=== PATIENT | female | born 1945 | race Caucasian/White ===

== ENCOUNTER 2017-11-20 12:09 | Day surgery (SDC) | payer MEDICARE, BC ==
[~2017-11-20] VITALS: Ht 160 cm; Wt 70.9 kg
[2017-11-20 12:17] VITALS: BP 154/73
[2017-11-20] MEDS ORDERED: ATOR40TA PO (12:23)
[2017-11-20] MEDS ORDERED: LEVO100T PO (12:23)
[2017-11-20] MEDS ORDERED: METO25TA6 PO (12:24)
[2017-11-20] MEDS ORDERED: OMEP20CA10 PO (12:24)
[2017-11-20] MEDS ORDERED: TRIA1CAP2 PO (12:26)
[2017-11-20] MEDS ORDERED: FENO54TA PO (12:27)
[2017-11-20] MEDS ORDERED: CHOL200013 PO (12:28)
[2017-11-20] MEDS ORDERED: CALC600T12 PO (12:29)
[2017-11-20] MEDS ORDERED: OMEG-182 PO (12:29)
[2017-11-20] MEDS ORDERED: IBUP-24 PO (12:30)
[2017-11-20] MEDS ORDERED: BACL10TA PO (12:30)
[2017-11-20] MEDS ORDERED: PHOS118S25 PO (12:31)
[2017-11-20] MEDS ORDERED: fentaNYL/PF 50MCG/1 ML 2ML syringe ONE ×2 (13:01→13:15)
[2017-11-20] MEDS ORDERED: MIDAZolam 5mg/5ml vial ONE (13:02)
[2017-11-20] MEDS ORDERED: LIDOcaine Viscous 15ml cup ONE (13:02)
[2017-11-20] MEDS ORDERED: diphenhydrAMINE 50 mg/ml inj ONE (13:14)
[2017-11-20 13:36] VITALS: BP 105/60
[2017-11-20 13:46] VITALS: BP 102/62
[2017-11-20 13:56] VITALS: BP 100/57
[2017-11-20 14:06] VITALS: BP 101/61
== END 2017-11-20 14:25 | disposition home or self-care (01) ==
LOC: GI LAB 12:09
PROVIDERS: ATTEND Internal Medicine Gastroenterology
DX: K52.89 Other specified noninfective gastroenteritis and colitis (principal); Z79.1 Long term (current) use of non-steroidal anti-inflammatories (NSAID); Z88.7 Allergy status to serum and vaccine; Z91.048 Other nonmedicinal substance allergy status; Z88.6 Allergy status to analgesic agent; Z90.710 Acquired absence of both cervix and uterus; Z79.899 Other long term (current) drug therapy
CPT/HCPCS: 45380; G0500; J1200; J2250; J3010; J7030; 88305; A4620

== ENCOUNTER 2019-08-14 10:15 | Emergency (ER) | payer MEDICARE, BC ==
[~2019-08-14] VITALS: Ht 162.6 cm; Wt 74.5 kg
[~2019-08-14 10:15] MED LIST: ATOR40TA PO; BACL10TA PO; CALC600T12 PO; CHOL200013 PO; FENO54TA PO; IBUP-24 PO; LEVO100T PO; METO25TA6 PO; OMEG-182 PO; OMEP-297 PO; PHOS118S25 PO; TRIA1CAP2 PO
[2019-08-14 10:27] VITALS: BP 174/83
[2019-08-14 11:10] LABS: BASOPHILS # (AUTO) 0.1 X10'3 (0-0.2); BASOPHILS % (AUTO) 0.7 % (0-1); EOSINOPHILS # (AUTO) 0.1 X10'3 (0-0.9); EOSINOPHILS % (AUTO) 1.1 % (0-6); HEMATOCRIT 40.7 % (35.0-45.0); HEMOGLOBIN 13.7 g/dl (12.0-16.0); LYMPHOCYTES # (AUTO) 1.8 X10'3 (1.1-4.8); LYMPHOCYTES % (AUTO) 22.3 % (21-51); MEAN CORPUSCULAR HEMOGLOBIN 28.9 PG (27.0-31.0); MEAN CORPUSCULAR HGB CONC 33.8 g/dL (33.0-36.5); MEAN CORPUSCULAR VOLUME 85.5 FL (78-98); MEAN PLATELET VOLUME 8.2 FL (7.4-10.4); MONOCYTES # (AUTO) 0.6 X10'3 (0-0.9); MONOCYTES % (AUTO) 7.1 % (2-12); NEUTROPHILS # (AUTO) 5.5 X10'3 (1.8-7.7); NEUTROPHILS % (AUTO) 68.8 % (42-75); PLATELET COUNT 244 X10'3 (140-440); RED BLOOD COUNT 4.76 X10'6 (4.20-5.60); RED CELL DISTRIBUTION WIDTH 13.8 % (11.5-14.5)
[2019-08-14 11:36] LABS: ALANINE AMINOTRANSFERASE 24 U/L (12-78); ALBUMIN 3.9 G/DL (3.4-5.0); ALBUMIN/GLOBULIN RATIO 1.3 (1.1-1.5); ALKALINE PHOSPHATASE 47 IU/L (46-116); ANION GAP 8 (8-16); ASPARTATE AMINO TRANSFERASE 19 U/L (10-37); BILIRUBIN,TOTAL 0.4 MG/DL (0.1-1.0); BLOOD UREA NITROGEN 34 MG/DL (7-18); BUN/CREATININE RATIO 27.4 (6.6-38.0); CALCIUM 8.5 MG/DL (8.5-10.1); CHLORIDE 106 MMOL/L (99-107); CREATININE 1.24 MG/DL (0.40-0.90); GLUCOSE 111 MG/DL (70-104); LIPASE 302 U/L (73-393); POTASSIUM 3.5 MMOL/L (3.5-5.1); SODIUM 144 MMOL/L (135-145); eGFR 43 ML/MIN
[2019-08-14 11:51] LABS: WHITE BLOOD COUNT 7.9 X10'3 (4.5-11.0)
[2019-08-14 12:01] LABS: CLARITY,URINE CLEAR (Clear); COLOR,URINE YELLOW (Yellow); GLUCOSE, URINE NEGATIVE (Neg); KETONES,URINE NEGATIVE (Neg); LEUKOCYTE ESTERASE ,URINE TRACE (Neg); NITRITES, URINE NEGATIVE (Neg); OCCULT BLOOD,URINE NEGATIVE (Neg); PH,URINE 6.5 (4.8-8.0); PROTEIN,URINE NEGATIVE (Neg); UROBILINOGEN,URINE 0.2 E.U/dL (0.2-1.0)
[2019-08-14 12:05] LABS: UA COLLECTION TYPE NON-SPECIFIED
[2019-08-14 12:06] LABS: MUCUS STRANDS NONE SEEN /LPF (Neg); RBC,URINE NONE SEEN /HPF (0-2); SQUAMOUS EPITHELIAL CELL,UR FEW /LPF (FEW); WBC,URINE 0-4 /HPF (0-4)
[2019-08-14 12:07] LABS: BACTERIA,URINE FEW /HPF (Neg)
[2019-08-14] MEDS ORDERED: AMOX-580 PO (12:16)
== END 2019-08-14 12:43 | disposition home or self-care (01) ==
LOC: ER 10:16
DX: R10.32 Left lower quadrant pain (principal); Z79.899 Other long term (current) drug therapy; Z88.8 Allergy status to other drugs, medicaments and biological substances
CPT/HCPCS: 36415; 74176; 80053; 81001; 83690; 85025; 87088; 99284

== ENCOUNTER 2025-04-07 09:01 | Day surgery (SDC) | payer MEDICARE, BC ==
[2025-04-01 10:03] LABS: MEAN PLATELET VOLUME 8.1 FL (7.4-10.4); PRE OP HEMATOCRIT 39.0 % (35.0-45.0); PRE OP HEMOGLOBIN 13.3 g/dL (12.0-16.0); PRE OP PLATELET COUNT 212 X10'3 (140-440); PRE OP WHITE BLOOD COUNT 6.3 10'3 (4.8-10.8); RED CELL DISTRIBUTION WIDTH 13.6 % (11.5-14.5)
[2025-04-01 10:42] LABS: CREATININE 1.01 MG/DL (0.40-0.90); PRE OP ALT 19 U/L (30-65); PRE OP ANION GAP 10 (8-16); PRE OP AST 20 U/L (10-37); PRE OP BILIRUB, TOTAL 0.6 MG/DL (0.0-1.0); PRE OP GLUCOSE 107 MG/DL (70-104); PRE OP POTASSIUM 3.8 MMOL/L (3.4-5.1); PRE OP SODIUM 140 MMOL/L (135-145); TOTAL CARBON DIOXIDE 29.3 MMOL/L (24-32); eGFR 53 ML/MIN
[~2025-04-07] VITALS: Ht 162.6 cm; Wt 76.2 kg
[2025-04-07] VITALS (26 sets, daily range): BP systolic 106–170; BP diastolic 67–84; PULSE 61–85; RESP 10–24; TEMP 97.1–98.3; O2SAT 93–99
[2025-04-07] MEDS: ringers solution, lacted 1,000 ML IV SCH ×3 (05:30→13:10)
[2025-04-07] MEDS: ceFAZolin 2gm/dext,iso 50mL 50 ML IV ONE (05:30)
[2025-04-07] MEDS: DOCUMENT DATE & TIME OF BETA-BLOCKER PO ONE (06:00)
[~2025-04-07 09:01] MED LIST changes: +ACET-1084 PO; +ATOR-2 PO; -ATOR40TA PO; -BACL10TA PO; -CALC600T12 PO; +CALC600T35 PO; +EZET10TA48 PO; -IBUP-24 PO; +MAGN200T PO; -METO25TA6 PO; +METO50TA16 PO; -OMEP-297 PO; +OMEP20CA15 PO
[2025-04-07] MEDS ORDERED: BUPIVACAINE/MELOXICAM 14 ML VIAL IL ONE (09:53)
[2025-04-07] MEDS: VANCOMYCIN/H2O 1.5g/300mL PB 300 ML IV ONE (10:24)
[2025-04-07] MEDS ORDERED: fentaNYL /PF 50mcg/ml 5ml ampule ONE (11:21)
[2025-04-07] MEDS ORDERED: midazolam 1 mg/ML 2ml injection ONE (11:21)
--- NOTE | 2025-04-07 11:34 | DISCHARGE SUMMARY ---
Discharge Summary Ortho CC ~ Discharge Summary *Problems/Diagnosis: (1) S/P total knee arthroplasty Admission Diagnosis: osteoarthritis Discharge Diagnosis\Comment: s/p Right TKA Operations\Procedures Right TKA Consultants: None Complications: None Condition on DC: Stable Discharge Summary: On today's date patient underwent a right total knee arthroplasty. Surgery went well and without complication. Patient is doing well in recovery. Permitted she meets discharge criteria she will be discharged home today. Total Time Spent on D/C: Up to 30 Minutes Medications Home Meds: Home Medications Active Reported Acetaminophen 500 Mg Tablet 1 Tab PO Q4H PRN Magnesium 200 Mg Tablet 200 Mg PO DAILY Ezetimibe 10 Mg Tablet 1 Tab PO DAILY Atorvastatin Calcium 80 Mg Tablet 1 Tab PO DAILY Metoprolol Tartrate 50 Mg Tablet 1 Tab PO BID Emetrol Oral Solution (Phosp Acid/Dextrose/Fructose) 118 Ml Solution PO PRN PRN Fish Oil 1,200 mg Softgel ([place]-3S/Dha/Epa/Fish Oil) 1 Each Capsule 1 PO DAILY Calcium (Calcium Carbonate) 600 Mg Tablet 2 PO DAILY D3-2000 (Cholecalciferol (Vitamin D3)) 2,000 Unit Capsule 1,000 Mg PO DAILY Fenofibrate 54 Mg Tablet 1 Tab PO BID 30 Days Dyazide 37.5-25 Capsule (Triamterene/Hydrochlorothiazid) 1 Each Capsule 1 Cap PO DAILY 30 Days Omeprazole 20 Mg Capsule. 1 Cap PO BID 30 Days Synthroid (Levothyroxine Sodium) 100 Mcg Tablet 1 Tab PO DAILY 30 Days Supervising Physician Supervising Physician: Dr. Chandler Elizabeth Problem Qualifiers (1) S/P total knee arthroplasty: Qualified Codes: Z96.651 - Presence of right artificial knee joint [place] JASON PAC Apr 07, 2025 11:34
[2025-04-07] MEDS ORDERED: 0.9 % SODIUM CHLORIDE 10 ML VIAL ONE ×2 (11:41→12:19)
[2025-04-07] MEDS ORDERED: ROPIVAcaine 0.5% (5mg/ml) 30ml vial ONE (11:41)
[2025-04-07] MEDS ORDERED: LIDOcaine 2% (20mg/ml) 5ml vial ONE (11:42)
[2025-04-07] MEDS ORDERED: dexamethasone sod phosphate 4mg/ml inj. ONE (11:42)
[2025-04-07] MEDS ORDERED: propofol inj 20 ML IV ONE (11:42)
[2025-04-07] MEDS ORDERED: ondansetron/PF 4mg/2ml inj ONE (11:47)
[2025-04-07] MEDS: BUPIVACAINE/MELOXICAM 14 ML VIAL IL ONE (12:15)
[2025-04-07] MEDS ORDERED: ePHEDrine 50MG/ML INJ. ONE (12:19)
[2025-04-07] MEDS ORDERED: labetalol 20mg/4ml (5mg/ml) syringe IV PRN (13:10)
[2025-04-07] MEDS ORDERED: ondansetron/PF 4mg/2ml inj IV PRN ×2 (13:10→16:10)
[2025-04-07] MEDS ORDERED: morphine 4 MG/ML inj SYRINge IV PRN (13:10)
[2025-04-07] MEDS ORDERED: HYDROmorphone/PF 0.2 MG/ML SYRINGE IV PRN ×2 (13:10)
[2025-04-07] MEDS ORDERED: hydrALAZINE 20mg/ml inj. IV PRN (13:10)
--- NOTE | 2025-04-07 13:28 | OPERATIVE REPORT ---
Operative Report Operative Report OPERATIVE REPORT [facility] [address] [place] [address] Date of service: April 07, 2025 PREOPERATIVE DIAGNOSIS M17..16 Unilateral primary osteoarthritis, right knee POSTOPERATIVE DIAGNOSIS M17..16 Unilateral primary osteoarthritis, right knee Operation Performed 35520 Total Knee Arthroplasty with this [place]: [place] 27719 Computer Assisted Navigation Musculoskeletal - Imageless Procedure: Computer-assisted, robotically-assisted, right total knee arthroplasty. Surgeon: Dr. Chandler Elizabeth Political Geographer: Blanca Durand PA-C Anesthesiologist: Dr. Gomez Anesthesia: General Anesthetic Indications: 79-year-old female who has chronic osteoarthritis of the right knee with severe pain and limitation of activities despite extensive non- operative management. This patient has had extensive conservative treatment of knee joint arthritis, including rest, external joint support, anti-inflammatory medications, physical therapy, and corticosteroid injection. Physical therapy has been provided, along with a home exercise program prior to making the decision to proceed with surgical treatment. This therapeutic intervention did not provide any substantial relief of symptoms or improvement in function. The patient has been utilizing a cane, set of crutches, or walker, for more than 3 months prior to deciding to proceed with surgery. These interventions have not provided sufficient relief of pain to allow improvement in function. The patient has utilized non-steroidal anti-inflammatory medications for relief of pain over an extended period of time (more than 2 months), and has not experienced sufficient improvement in symptoms. Despite these treatments, this patient has c ontinued difficulties with pain and limited function. They are unable to walk long distances, do vigorous activities, sit or sleep comfortably. Total knee replacement is the next reasonable step in terms of treatment. 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 This facilitated operative exposure, manipulation and handling of tissues, placement of any implants, and accomplishment of wound closure. Findings: There was indeed a very severely arthritic knee, with loss of cartilage, exposed bone, and marginal osteophytes. The medial compartment was particularly bad. A 4 degree varus deformity and 2 degree flexion contracture were measured preoperatively. Post operative alignment was 0 varus, and full extension. Complications: None Estimated Blood Loss: 150 mL Implants: A Mercedes Persona CR total knee system was utilized with a size eight right cemented femoral component, and a size D right cemented tibial smart stem. A 10 mm medial congruent right tibial insert was utilized. The Open[employer]atch robotically assisted total knee arthroplasty system and computer was utilized. Procedure: The risks, benefits, expected results, and possible complications of the planned procedure had been explained to the patient and informed consent obtained. The patient was taken to the operating room and underwent a general anesthetic and regional blocks. The patient was placed in the supine position on the operating table, and the right leg was prepped and draped in the usual fashion. A timeout was taken prior to surgery, confirming patient identification, operative side operative site, planned procedure, administration of pre-operative antibiotics, site marking, and presence of all necessary implants and instruments, x-rays and equipment. A standard anterior, slightly medial approach was performed with a medial parapatellar arthrotomy, and a VMO split. Time was then spent removing excessive synovial tissue and exposing the medial and lateral gutters, as well as moving the anterior sections of the residual menisci. The patella was mobilized to be able to be retracted laterally. This gave exposure of the anterior aspect of the knee. Attention was then directed to the patella. The patella was in excellent condition so we decided not to resurface the patella. Infrared arrays were then placed on the femur and the tibia. Utilizing the OpenHatch computer system, the hip, knee, and ankle were landmarked in usual fashion. The initial alignment measurements were then taken confirming the above listed deformity. Surgical planning was then carried out on the computer, confirming alignment of components, sizing, and gap balancing. Appropriate soft tissue releases were performed. The robot was then utilized to make the distal femoral cut. The femur was prepared in 4 degrees of flexion and neutral coronal alignment. The distal femoral 4 in 1 block was placed with the robot, and the remaining femoral cuts also performed. A repeat cut of the femur was performed, after validation, to gain perfect alignment. The robot was then utilized to cut the proximal tibia in 5 degrees of flexion and neutral coronal alignment. The computer was then utilized to check longitudinal alignment and soft tissue balance, and this confirmed excellent alignment. Next the dynamic balancing block was utilized to check and adjust soft tissue balancing. The trial implant was sized and properly rotated, and the peg drilling performed. Final check of alignment and balancing was then carried out with trials in place, as well as final removal and cleaning up of soft tissue such as meniscal remnants and osteophytes. A tourniquet was inflated to 300 mmHg after exsanguination of the leg with an Esmarch. Cement was then mixed; 2 batches were utilized, mixed together, for the tibia, the femur and the patella. The cut surface of the tibia was thoroughly lavaged with the pulsating lavage and then dried. The tibia was impacted with the mallet, seating it quite nicely in its proper rotational alignment. Excess cement was removed from around the margins. The femoral cuts were cleaned with a pulsating lavage and then dried with the lap sponges, and the femur was impacted into position with a mallet. Excess cement was removed around the ma rgins of the components as the cement cured. Pressure was held on the femoral component and tibia by placing a spacer and bringing the leg to full extension and applying axial and hyperextension force. Upon complete hardening of all cement, the knee was inspected and excess cement removed. We lavaged the knee to wash out any debris and checked to make sure we had no impinging cement. The trial spacer was replaced and overall alignment checked with computer, ensuring we had full extension of the knee, and a ppropriate medial and lateral soft tissue balance, as well as flexion and extension balance. The tourniquet was deflated and hemostasis obtained with electrocautery. Tourniquet time was eight minutes. The wound was irrigated thoroughly one more time and then dried with lap sponges. The final tibial spacer was impacted and locked into the locking mechanism without difficulty. I lavaged the knee to wash out any debris. The tibial trial spacer was replaced and overall alignment checked with computer, ensuring we had full extension of the knee, and appropriate medial and lateral soft tissue balance, as well as flexion and extension balance. The wound was irrigated thoroughly one more time and then dried with lap sponges. The final tibial spacer was impacted and locked into the locking mechanism without difficulty. The retinacular incision was closed with #2 Quill suture, and subcutaneous tissue closed with #2-0 Vicryl suture. Skin was closed with 4-0 Monocryl suture. A sterile dressing was applied, and the patient was returned to the recovery room in satisfactory condition. Electronically Signed by: Chandler Elizabeth MD Doctor, Orthopedic Surgery Signed on: 04/07/2025 01:27 PM Problems/Diagnosis: (1) S/P total knee arthroplasty Problem Qualifiers (1) S/P total knee arthroplasty: Qualified Codes: Z96.651 - Presence of right artificial knee joint CHANDLER ELIZABETH MD Apr 07, 2025 13:28
[2025-04-07] MEDS: acetaminophen 1,000mg/100ml IV 100 ML IV PRN (13:35)
[2025-04-07] MEDS ORDERED: HYDROmorphone inj. 0.5 MG/0.5 ML DISP.SYRIN IV PRN (16:10)
[2025-04-07] MEDS ORDERED: oxyCODONE IR 5mg (immed. release) tablet PO PRN ×2 (16:10)
[2025-04-07] MEDS ORDERED: bisacodyl 10mg suppository rectal RC PRN (16:10)
[2025-04-07] MEDS ORDERED: magnesium hydroxide 30ml (MOM) UD suspension PO PRN (16:10)
[2025-04-07] MEDS: potassium cl 20mEq in 1/2 NS 1,000 ML IV SCH (19:43)
[2025-04-07] MEDS: vancomycin/NS 1 GM ADD-VANTAGE 250 ML IV SCH (19:52)
[2025-04-07] MEDS ORDERED: ceFAZolin 2gm/dext,iso 50mL 50 ML IV ONE (20:00)
[2025-04-07] MEDS ORDERED: VANCOMYCIN/H2O 1.5g/300mL PB 300 ML IV ONE (20:00)
[2025-04-08] MEDS: ceFAZolin/D5W- 1GM premix 50 ML IV SCH (00:23)
[2025-04-08 02:00] VITALS: BP 140/62; PULSE 63; RESP 16; TEMP 97.6; O2SAT 98
[2025-04-08] MEDS: HYDROcodone/acetaminophen 10/325mg tab PO PRN (05:38)
[2025-04-08 06:00] VITALS: BP 130/53; PULSE 67; RESP 16; TEMP 97.4; O2SAT 94
[2025-04-08 06:14] LABS: MEAN PLATELET VOLUME 8.3 FL (7.4-10.4); RED CELL DISTRIBUTION WIDTH 14.1 % (11.5-14.5)
[2025-04-08 06:20] LABS: TOTAL CARBON DIOXIDE 25.8 MMOL/L (24-32)
[2025-04-08] MEDS: cholecalciferol (vitamin D3) 1,000 unit (25mcg) tablet PO SCH (07:12)
[2025-04-08] MEDS: pantoprazole 40mg Tablet.DR PO SCH (07:12)
[2025-04-08 07:13] VITALS: BP_SYST 133; PULSE 80
[2025-04-08] MEDS: levoTHYROXINE 100mcg tablet PO SCH (07:13)
[2025-04-08] MEDS: OMEGA-3/DHA/EPA/FISH OIL 1 EACH CAPSULE.DR PO SCH (07:13)
[2025-04-08] MEDS ORDERED: CALCIUM CARBONATE PO SCH (08:00)
[2025-04-08] MEDS ORDERED: HYDROCHLOROTHIAZID PO SCH (08:00)
[2025-04-08] MEDS ORDERED: TRIAMTERENE PO SCH (08:00)
== END 2025-04-08 10:10 | disposition home or self-care (01) ==
LOC: PAS 09:01 → ORTHO 4S 16:12 → UNDOADMIN 16:12 → PAS 04-08 10:10 → UNDODISIN 04-08 10:10
PROVIDERS: ATTEND Orthopaedic Surgery
DX: M17.11 Unilateral primary osteoarthritis, right knee (principal); G89.18 Other acute postprocedural pain; I10 Essential (primary) hypertension; E78.00 Pure hypercholesterolemia, unspecified; E89.0 Postprocedural hypothyroidism; K21.9 Gastro-esophageal reflux disease without esophagitis; F41.9 Anxiety disorder, unspecified; F32.A Depression, unspecified; Z87.891 Personal history of nicotine dependence; Z79.82 Long term (current) use of aspirin; Z79.890 Hormone replacement therapy; Z79.891 Long term (current) use of opiate analgesic; Z79.899 Other long term (current) drug therapy; Z98.890 Other specified postprocedural states; Z88.8 Allergy status to other drugs, medicaments and biological substances
CPT/HCPCS: 20985; 27447; 36415; 64447; 80051; 80053; 84443; 85025; 87081; 97110; 97116; 97161; 97530; A4215; A4618; A6402; A6449; A7000; C1713; C1776; C9088; J0131; J0690; J1100; J2003; J2250; J2405; J2704; J2795; J3010; J3373; J3375; J3480; J3490; J7030; J7120; Z7506; Z7508; Z7512; Z7610; G0378

== ENCOUNTER 2025-04-10 12:55 | Emergency (ER) | payer MEDICARE, BC ==
[~2025-04-10] VITALS: Ht 162.6 cm; Wt 73.9 kg
[2025-04-10 12:58] VITALS: TEMP 97.4
--- NOTE | 2025-04-10 13:49 | Physician Documentation ---
History of Present Illness ~ General Chief Complaint: Post-operative complication Stated Complaint: POST OP COMPLICATIONS Time Seen by MD: 13:24 Source: patient, family Mode of Arrival: POV Exam Limitations: no limitations History of Present Illness Initial Comments Patient who is postop day 3. From a total right knee replacement with Dr. Elizabeth. In because she has developed a large blister on her lower extremity. It was the size of a quarter last night and is more like the size of a fist today. It isn't necessarily painful. No fevers. She also feels like she has more bruising around her thigh then yesterday. Her clinical assistant sent her in for evaluation. Medication Reconciliation Allergies: Coded Allergies: amlodipine (Verified Allergy, Severe, ANGIOEDEMA, 04/06/25) gabapentin (Unverified Allergy, Severe, SYNCOPE, 04/06/25) rash losartan (Verified Allergy, Severe, ANGIOEDEMA, 04/06/25) raloxifene (Verified Allergy, Severe, NAUSEA, DIAPHORETIC, SWOLLEN THROAT, 04/06/25) ciprofloxacin (Verified Allergy, Intermediate, LEG PAIN, 04/06/25) ibuprofen (Verified Allergy, Mild, 04/06/25) pregabalin (Unverified Adverse Reaction, Unknown, 11/20/17) "sleepy" Uncoded Allergies: TETANUS (Allergy, Unknown, 01/11/09) paper tape (Allergy, Unknown, 11/20/17) rash ALENDRONATE (Adverse Reaction, Intermediate, NAUSEA, 04/06/25) Scheduled Atorvastatin Calcium (Atorvastatin Calcium), 1 TAB PO DAILY, (Reported) Calcium Carbonate (Calcium), 2 PO DAILY, (Reported) Cholecalciferol (Vitamin D3) (D3-2000), 1,000 MG PO DAILY, (Reported) Ezetimibe (Ezetimibe), 1 TAB PO DAILY, (Reported) Fenofibrate (Fenofibrate), 1 TAB PO BID, (Reported) Levothyroxine Sodium (Synthroid), 1 TAB PO DAILY, (Reported) Magnesium (Magnesium), 200 MG PO DAILY, (Reported) Metoprolol Tartrate (Metoprolol Tartrate), 1 TAB PO BID, (Reported) [place]-3S/Dha/Epa/Fish Oil (Fish Oil 1,200 mg Softgel), 1 PO DAILY, (Reported) Omeprazole (Omeprazole), 1 CAP PO BID, (Reported) Triamterene/Hydrochlorothiazid (Dyazide 37.5-25 Capsule), 1 CAP PO DAILY, (Reported) Scheduled PRN Acetaminophen (Acetaminophen), 1 TAB PO Q4H PRN for pain or fever, (Reported) Phosp Acid/Dextrose/Fructose (Emetrol Oral Solution), PO PRN PRN for nause a/vomiting, (Reported) Past Medical History Past Medical History: No Pertinent History Past Surgical History: noncontributory Patient History: Patient reports no known family medical history. Alcohol Use: None Drug Use: none Lives with: Alone Lives In: Home Review of Systems All Other Systems at this time: Reviewed and Negative Physical Exam Physical Exam Vital Signs: Temperature: 97.4, Heart Rate: 65, Respiratory Rate: 16, BP: 159/77, Pulse Oximetry: 97, Weight: 73.900 Oxygen Flow Rate: 0 General Appearance: alert Head: normal inspection Face: normal inspection Neck: non-tender, full range of motion Respiratory: no respiratory distress Chest: no accessory muscle use Cardiovascular: regular rate, rhythm Extremities Right lower extremity: Anterior incision over the knee without sign of infection, it is clean dry and intact, she does have edema in the foot so difficult to palpate pulse but pulses found by Doppler, she does have a roughly 10 cm serosanguineous appearing fluid-filled blister and the anterior haas, ecchymosis all along the anterior and medial aspect of the thigh Neurologic: oriented x4 Motor / Sensory: no motor deficit Psychiatric: normal mood/affect Skin: normal color, warm/dry Progress Results/Orders Results/Orders Completed Orders - BEULAH GAVIRIA MD Cbc/Diff (04/10/25 13:34) BMP (04/10/25 13:34) Vital Signs 04/10/25 04/10/25 04/10/25 04/10/25 12:58 13:30 14:26 15:40 Temp 97.4 Pulse 65 60 65 Resp 16 15 16 16 B/P (MAP) 159/77 123/51 (75) 133/53 (79) Pulse Ox 97 96 96 O2 Flow Rate 0 Laboratory Tests Test 04/10/25 13:43 White Blood Count 6.3 Red Blood Count 3.45 L Hemoglobin 10.1 L Hematocrit 29.7 L Mean Corpuscular Volume 86.1 Mean Corpuscular Hemoglobin 29.3 Mean Corpuscular Hemoglobin Concent 34.0 Red Cell Distribution Width 14.0 Platelet Count 193 Mean Platelet Volume 8.4 Neutrophils (%) (Auto) 64.2 Lymphocytes (%) (Auto) 19.8 L Monocytes (%) (Auto) 14.0 H Eosinophils (%) (Auto) 1.8 Basophils (%) (Auto) 0.2 Neutrophils # (Auto) 4.0 Lymphocytes # (Auto) 1.2 Monocytes # (Auto) 0.9 Eosinophils # (Auto) 0.1 Basophils # (Auto) 0.0 CBC Comment Sodium Level 136 Potassium Level 4.5 Chloride Level 99 Carbon Dioxide Level 27.3 Anion Gap 10 Blood Urea Nitrogen 22 H Creatinine 1.25 H Estimated GFR/1.73 m2 42 BUN/Creatinine Ratio 17.6 Glucose Level 110 H Calcium Level 8.0 L Albumin 3.0 L Chemistry Comments Medical Decision Making Differential Diagnosis No concern for infection of the blister site at this time. No erythema or pustular presence. Vital signs stable and CBC and chemistry are normal. Her orthopedic doctor Dr. Elizabeth did stop by to see her and agreed. Discharged home in good condition with care instructions to help prevent infection. She is to keep follow-up appointments. Return here if new or worsening symptoms prior to follow up. Departure Disposition: HOME / SELF CARE / HOMELESS Impression: Primary Impression: Blister of left leg Qualified Codes: S80.822A - Blister (nonthermal), left lower leg, initial encounter Condition: Stable Additional Instructions: Gently wash the area with warm soapy water every day. Keep it clean, dry and covered. If it opens continue to wash it and keep it clean. Keep your follow up appointment. Return if worsening of symptoms including signs of infection. Referrals: NO PRIMARY CARE PROVIDER (PCP) Education Educated: Patient, Family Educated regarding: diagnosis, treatment, need for follow up Signature Scribe Signature: No scribe used Attestation: No scribe used BEULAH GAVIRIA MD Apr 10, 2025 13:49
[2025-04-10 14:02] LABS: MEAN PLATELET VOLUME 8.4 FL (7.4-10.4); RED CELL DISTRIBUTION WIDTH 14.0 % (11.5-14.5)
[2025-04-10 14:12] LABS: CREATININE 1.25 MG/DL (0.40-0.90); TOTAL CARBON DIOXIDE 27.3 MMOL/L (24-32); eCRCL 33 ML/MIN; eGFR 42 ML/MIN
[2025-04-10 15:40] VITALS: BP 133/53; PULSE 65; RESP 16; O2SAT 96
--- NOTE | 2025-04-10 17:08 | ELECTROCARDIOGRAPH REPORT ---
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
== END 2025-04-10 16:10 | disposition home or self-care (01) ==
LOC: ER 12:56
DX: S80.822A Blister (nonthermal), left lower leg, initial encounter (principal); R07.9 Chest pain, unspecified; Z88.1 Allergy status to other antibiotic agents; Z88.6 Allergy status to analgesic agent; Z88.8 Allergy status to other drugs, medicaments and biological substances; Z91.048 Other nonmedicinal substance allergy status; Z96.651 Presence of right artificial knee joint; X58.XXXA Exposure to other specified factors, initial encounter; Y93.89 Activity, other specified; Y92.89 Other specified places as the place of occurrence of the external cause; Y99.8 Other external cause status
CPT/HCPCS: 36415; 80048; 85025; 93005; 99284